=== PATIENT | female | born 2000 | race Caucasian/White ===

== ENCOUNTER 2021-01-28 15:14 | Outpatient (CLI) | payer OTHER | END 2021-01-28 15:15 | disposition home or self-care (01) | LOC: SCSMRI 15:14 | PROVIDERS: ATTEND Orthopaedic Surgery | DX: S46.202A Unspecified injury of muscle, fascia and tendon of other parts of biceps, left arm, initial encounter (principal); M65.812 Other synovitis and tenosynovitis, left shoulder ==